=== PATIENT | female | born 1975 | race Caucasian/White ===

== ENCOUNTER → 2020-08-23 10:07 | Outpatient (CLI) | payer OTHER, SELFPAY ==
--- NOTE | ~2020-08-23 | XR_ITS ---
EXAMINATION: XR barium swallow DATE: 08/23/2020 11:55 INDICATION: Epigastric abdominal pain. TECHNIQUE: The patient drank thick barium, gas-producing crystals, and thin barium. Fluoroscopy of th e hypopharynx and esophagus was performed. Fluoroscopy exposure time was 0.6 minutes. The total numbe r of images was 250. The dose-area product was 2.124 Gy-cm^2. COMPARISON: Abdomen MRI 02/09/2015 FINDINGS: There is no mass or stricture of the esophagus. Esophageal motility is normal. There is no hiatal hernia. IMPRESSION: 1. Normal esophagram. Reviewed, dictated and finalized at location B. LDER PUNCHER IMPRESSION: 1. Normal esophagram.
== END ==
PROVIDERS: PCP Physician Assistant; Visit Provider Physician Assistant
DX: R10.13 Epigastric pain (principal)
CPT/HCPCS: 74220